=== PATIENT | male | born 1950 | race African-American/Black ===

== ENCOUNTER 2022-07-23 10:17 | Outpatient (CLI) | payer OTHER, SELFPAY | END 2022-07-23 10:18 | disposition home or self-care (01) | LOC: INJ CL 10:17 | PROVIDERS: PCP Family Medicine; Visit Provider Family Medicine | DX: M17.12 Unilateral primary osteoarthritis, left knee (principal); M25.562 Pain in left knee | CPT/HCPCS: 64454 ==

== ENCOUNTER 2022-07-30 13:51 | Outpatient (CLI) | payer OTHER, SELFPAY | END 2022-07-30 13:52 | disposition home or self-care (01) | LOC: INJ CL 13:52 | PROVIDERS: PCP Family Medicine; Visit Provider Family Medicine | DX: M17.12 Unilateral primary osteoarthritis, left knee (principal); G89.29 Other chronic pain; M25.562 Pain in left knee | CPT/HCPCS: 64624; J2250; J3010 ==

== ENCOUNTER 2022-10-22 12:53 | Outpatient (CLI) | payer MEDICARE, SELFPAY | END 2022-10-22 12:54 | disposition home or self-care (01) | LOC: INJ CL 12:55 | PROVIDERS: PCP Family Medicine; Visit Provider Family Medicine | DX: M17.11 Unilateral primary osteoarthritis, right knee (principal); M25.561 Pain in right knee | CPT/HCPCS: 64454 ==

== ENCOUNTER 2022-11-15 09:59 | Outpatient (CLI) | payer MEDICARE, SELFPAY | END 2022-11-15 10:00 | disposition home or self-care (01) | LOC: INJ CL 09:59 | PROVIDERS: PCP Family Medicine; Visit Provider Family Medicine | DX: M17.11 Unilateral primary osteoarthritis, right knee (principal); G89.29 Other chronic pain; M25.561 Pain in right knee | CPT/HCPCS: 64624; J2250; J3010 ==